=== PATIENT | female | born 1960 | race Hispanic/Latino ===

== ENCOUNTER → 2018-09-24 | Day surgery (SDC) | payer BC ==
[~2018-09-24] MED LIST: FENTANYL CITRATE/PF 100MCG/2 ML INJ ONE; GLUCOTROL10 MG PO; HYOSCYAMINE SULFATE 0.5 MG/ML INJ ONE; JANUVIA100 MG PO; LIDOCAINE HCL 2% LOCAL INJ 5 ML SDV VIAL INJ ONE; LISINOPRIL10 MG PO; OZEMPIC INJ; PRILOSEC10 M1 PO; PROPOFOL IV EMULSION 10 MG/ML 50 ML VIAL ONE; TOUJEO SC
[2018-09-24 14:25] VITALS: BP 112/69
--- NOTE | 2018-09-25 08:48 | Operative Report ---
DATE OF PROCEDURE: 09/24/2018 SURGEON: Sebastian Mcfarland MD PROCEDURES: EGD with biopsies and colonoscopy with polypectomy and biopsies. INDICATIONS FOR EGD: Acid reflux. INDICATIONS FOR COLONOSCOPY: Surveillance colonoscopy, personal history of colon polyps, left-sided abdominal pain. MEDICATION: The patient was done under MAC, please see anesthesiologist's note. PROCEDURE IN DETAIL: With the patient in left lateral decubitus position, the flexible fiberoptic Olympus gastroscope was introduced into the esophagus under direct visualization without any difficulty. There was a patchy erythema noted in the distal esophagus. Minute tongue of velvety red mucosa was noted to extend proximally from the GE junction and that was biopsied to rule out Austin's. The scope was then advanced with ease into the stomach traversing a small sliding hiatal hernia. Mucosa overlying the antrum and the body revealed some patchy erythema, low grade to moderate edema, and biopsies were obtained and sent to stain for H. pylori. Several hyperplastic-appearing polyps were noted in the body of the stomach and somewhat partially excised with cold biopsy forceps. The pylorus was of normal contour and shape, was intubated with ease, and the scope was advanced all the way to the second portion of the duodenum. Biopsies were obtained from the proximal second portion and duodenal bulb to rule out sprue. The scope was then withdrawn back into the stomach and retroflexed, and the mucosa overlying the fundus and cardia appeared to be within normal limits. The scope was then straightened out and was subsequently withdrawn. The patient tolerated the procedure well. IMPRESSION: 1. Mild distal esophagitis. 2. Rule out Austin esophagus. 3. Small sliding hiatal hernia. 4. Gastritis, biopsied. Biopsies sent to stain for Helicobacter pylori. 5. Gastric polyps, hyperplastic appearing, body, some partially excised with the cold biopsy forceps. 6. Rule out sprue. PLAN: Followup histology. Initiate Protonix 40 mg one p.o. q.a.m. before meals. The patient was then turned around. After adequate lubrication of the anal canal, flexible fiberoptic Olympus colonoscope was inserted into the rectum with ease and advanced all the way to the cecum. Mucosa overlying the cecum appeared to be within normal limits. A minute nodule was noted in the proximal ascending colon that was biopsied. One polyp in the distal ascending colon was removed per snare electrocautery. Some scattered diverticula were noted in the transverse colon, but diverticulosis was more prominent in the left, primarily the distal descending and the sigmoid colon. One polyp was snared, one polyp was hot biopsied from the transverse colon. Two polyps were hot biopsied from the rectum. The scope was then retroflexed into the distal rectum and small internal hemorrhoids were noted, none of which was actively bleeding. The scope was then straightened out, it was subsequently withdrawn. The patient tolerated the procedure well. IMPRESSION: 1. Minute nodule, proximal ascending colon, biopsied. 2. Distal ascending colon polyp, snared. 3. Diverticulosis. 4. Transverse colon polyps x2, one snared and one hot biopsied. 5. Rectal polyps x2, hot biopsied. 6. Internal hemorrhoids, none actively bleeding. PLAN: Followup histology. Initiate high-fiber, low-fat diet. Initiate high-fiber supplement. The patient might benefit from a followup colonoscopy in 3 years. MD AIDA Aguila/SU /[id number] cc: Silvano Chatterjee MD
== END | disposition home or self-care (01) ==
LOC: OR 09:44
PROVIDERS: ATTEND Internal Medicine Gastroenterology
DX: Z12.11 Encounter for screening for malignant neoplasm of colon (principal); Z86.010 Personal history of colon polyps; K29.70 Gastritis, unspecified, without bleeding; R10.12 Left upper quadrant pain; K21.0 Gastro-esophageal reflux disease with esophagitis; E66.9 Obesity, unspecified; I10 Essential (primary) hypertension; E11.9 Type 2 diabetes mellitus without complications; R14.2 Eructation; Z68.34 Body mass index [BMI] 34.0-34.9, adult; Z71.6 Tobacco abuse counseling; K64.8 Other hemorrhoids; K63.5 Polyp of colon; K62.1 Rectal polyp; D12.2 Benign neoplasm of ascending colon; D12.3 Benign neoplasm of transverse colon
CPT/HCPCS: 36415; 43239; 45385; 82948; 93005; J1980; J2001; J2704; 45380; 45384